=== PATIENT | female | born 1960 | race Hispanic/Latino ===

== ENCOUNTER 2020-05-22 22:38 | Observation (INO) | payer OTHER ==
[2020-05-22] MEDS ORDERED: HALOPERIDOL LACTATE 5 MG/1 ML INJ IM ONE (23:07)
[2020-05-22] MEDS ORDERED: LORazepam 2 MG/ML VIAL IM ONE (23:07)
--- NOTE | 2020-05-22 23:15 | Emergency Department Report ---
ED Altered Mental Status HPI - General Chief Complaint: Altered Mental Status Stated Complaint: AMS Time Seen by Provider: 05/22/20 22:53 Source: EMS Mode of arrival: Stretcher Limitations: Altered Mental Status - History of Present Illness Initial Comments: 58-year-old female presents with alteration mental status. Patient has a past medical history arthritis, hypertension, bipolar 1, anxiety, and a history of alcohol abuse. Patient is altered and unable to provide any history of present illness. I contacted patient's who states that patient has been having increased agitation last several days and has had several telephone visits with patient was started on estradiol [place] [facility]. Her medications have been adjusted multiple times over the last several days. As per HPI from the [place] [facility] patient reported that she did not feel good today and was anxious and very fatigued. She reports her mood was very depressed but denies thoughts of self-harm or others. She also denied having symptoms consistent with piotr or psychosis. Patient was stated on medication for menopausal symptoms and started on hormones for postmenopausal symptoms as well as Chantix to aid in smoking cessation given risk of coagulopathy while on hormone therapy. states he left the home and when he his son returned to the home found patient altered, running hands through hair. Unable to speak, agitated, appearing to have muscle spasms and diaphoretic - Related Data Allergies Allergy/AdvReac Type Severity Reaction Status Date / Time ampicillin AdvReac Itching Verified 05/22/20 23:00 ED Review of Systems ROS: Stated complaint: AMS Other details as noted in HPI ED Past Medical Hx - Past Medical History Previous Medical History?: Yes Hx Hypertension: Yes Hx Arthritis: Yes Hx Psychiatric Treatment: Yes (Generalized anxiety disorder, bipolar, MDD) Additional medical history: History of alcohol abuse, cervical spondylosis, history of attempted suicide, lumbosacral spondylosis, vitamin D deficiency, - Surgical History Past Surgical History?: Yes Additional Surgical History: Endometrial ablation - Social History Smoking Status: Current Every Day Smoker ED Physical Exam - General Limitations: Altered Mental Status ED Course Vital Signs 05/22/20 05/23/20 05/23/20 22:54 00:00 01:01 Temperature 98.6 F Pulse Rate 78 67 65 Respiratory 20 12 12 Rate Blood Pressure 138/97 132/83 112/76 O2 Sat by Pulse 96 90 97 Oximetry 05/23/20 05/23/20 05/23/20 02:01 02:35 04:40 Temperature Pulse Rate 67 97 H 69 Respiratory 10 L 15 19 Rate Blood Pressure 145/85 135/93 O2 Sat by Pulse 93 99 97 Oximetry - Reevaluation(s) Reevaluation #1: 05/23/20 02:22 I reassessed patient and found that patient was sleeping and appeared to have partial obstruction of airway with posterior tongue. O2 sat down to 91-93% but increased work of breathing. Patient's respiratory status improved with jaw thrust maneuver. Patient's head repositioned and placed on BiPAP to prevent airway obstruction while sleeping with improvement in respiratory status. ABG ordered. 05/23/20 05:59 Patient remains on BiPAP. Reassessed once again. Patient now opens eyes and moves her arms to localize touch to tactile stimuli. She is less sedated however, still appears altered and falls back to sleep when not stimulated. - Consultations Consultation #1: 05/23/20 04:[address] Barton from [place]. She states patient's BUN/creatinine in April 2013 was 21/1.2. She is agreeable to patient being admitted here - Lab Data Result diagrams: 05/22/20 23:18 05/22/20 23:18 Lab Results 05/22/20 05/22/20 05/22/20 Range/Units 23:18 23:18 23:18 WBC 10.6 (4.5-11.0) K/mm3 RBC 4.29 (3.65-5.03) M/mm3 Hgb 13.7 (10.1-14.3) gm/dl Hct 40.7 (30.3-42.9) % MCV 95 (79-97) fl MCH 32 (28-32) pg MCHC 34 (30-34) % RDW 12.8 L (13.2-15.2) % Plt Count 312 (140-440) K/mm3 Lymph % (Auto) 18.0 (13.4-35.0) % Sandoval % (Auto) 6.0 (0.0-7.3) % Eos % (Auto) 0.8 (0.0-4.3) % Baso % (Auto) 0.4 (0.0-1.8) % Lymph # 1.9 (1.2-5.4) K/mm3 Sandoval # 0.6 (0.0-0.8) K/mm3 Eos # 0.1 (0.0-0.4) K/mm3 Baso # 0.0 (0.0-0.1) K/mm3 Seg Neutrophils % 74.8 H (40.0-70.0) % Seg Neutrophils # 7.9 H (1.8-7.7) K/mm3 ABG pH (7.350-7.450) pH Units ABG pCO2 mm Hg ABG pO2 (80.0-90.0) mm Hg ABG HCO3 (20.0-26.0) mmol/L ABG O2 Saturation (95.0-99.0) % ABG O2 Content (0.0-44) ABG Base Excess (-2.0-3.0) mmol/L ABG Hemoglobin (12.0-16.0) gm/dl ABG Carboxyhemoglobin (0.0-5.0) % ABG Methemoglobin (0.0-1.5) % Oxyhemoglobin (95.0-99.0) % FiO2 % Sodium 144 (137-145) mmol/L Potassium 5.1 H (3.6-5.0) mmol/L Chloride 105.6 (98-107) mmol/L Carbon Dioxide 23 (22-30) mmol/L Anion Gap 21 mmol/L BUN 39 H (7-17) mg/dL Creatinine 1.7 H (0.6-1.2) mg/dL Estimated GFR 38 ml/min BUN/Creatinine Ratio 23 % Glucose 140 H (65-100) mg/dL Calcium 10.2 (8.4-10.2) mg/dL Magnesium (1.7-2.3) mg/dL Total Bilirubin 0.20 (0.1-1.2) mg/dL AST 25 (5-40) units/L ALT 30 (7-56) units/L Alkaline Phosphatase 114 (35-129) units/L Ammonia (25-60) umol/L Total Creatine Kinase 75 (30-135) units/L Total Protein 7.7 (6.3-8.2) g/dL Albumin 4.9 (3.9-5) g/dL Albumin/Globulin Ratio 1.8 % Urine Color (Yellow) Urine Turbidity (Clear) Urine pH (5.0-7.0) Ur Specific [place] (1.003-1.030) Urine Protein (Negative) mg/dL Urine Glucose (UA) (Negative) mg/dL Urine Ketones (Negative) mg/dL Urine Blood (Negative) Urine Nitrite (Negative) Urine Bilirubin (Negative) Urine Urobilinogen (<2.0) mg/dL Ur Leukocyte Esterase (Negative) Urine WBC (Auto) (0.0-6.0) /HPF Urine RBC (Auto) (0.0-6.0) /HPF U Epithel Cells (Auto) (0-13.0) /HPF Urine Mucus /HPF Salicylates < 0.3 L (2.8-20.0) mg/dL Urine Opiates Screen Urine Methadone Screen Acetaminophen (10.0-30.0) ug/mL Ur Barbiturates Screen Ur Phencyclidine Scrn Ur Amphetamines Screen U Benzodiazepines Scrn Urine Cocaine Screen U Marijuana (THC) Screen Drugs of Abuse Note Plasma/Serum Alcohol (0-0.07) % 05/22/20 05/22/20 05/22/20 Range/Units 23:18 23:18 23:18 WBC (4.5-11.0) K/mm3 RBC (3.65-5.03) M/mm3 Hgb (10.1-14.3) gm/dl Hct (30.3-42.9) % MCV (79-97) fl MCH (28-32) pg MCHC (30-34) % RDW (13.2-15.2) % Plt Count (140-440) K/mm3 Lymph % (Auto) (13.4-35.0) % Sandoval % (Auto) (0.0-7.3) % Eos % (Auto) (0.0-4.3) % Baso % (Auto) (0.0-1.8) % Lymph # (1.2-5.4) K/mm3 Sandoval # (0.0-0.8) K/mm3 Eos # (0.0-0.4) K/mm3 Baso # (0.0-0.1) K/mm3 Seg Neutrophils % (40.0-70.0) % Seg Neutrophils # (1.8-7.7) K/mm3 ABG pH (7.350-7.450) pH Units ABG pCO2 mm Hg ABG pO2 (80.0-90.0) mm Hg ABG HCO3 (20.0-26.0) mmol/L ABG O2 Saturation (95.0-99.0) % ABG O2 Content (0.0-44) ABG Base Excess (-2.0-3.0) mmol/L ABG Hemoglobin (12.0-16.0) gm/dl ABG Carboxyhemoglobin (0.0-5.0) % ABG Methemoglobin (0.0-1.5) % Oxyhemoglobin (95.0-99.0) % FiO2 % Sodium (137-145) mmol/L Potassium (3.6-5.0) mmol/L Chloride (98-107) mmol/L Carbon Dioxide (22-30) mmol/L Anion Gap mmol/L BUN (7-17) mg/dL Creatinine (0.6-1.2) mg/dL Estimated GFR ml/min BUN/Creatinine Ratio % Glucose (65-100) mg/dL Calcium (8.4-10.2) mg/dL Magnesium 2.60 H (1.7-2.3) mg/dL Total Bilirubin (0.1-1.2) mg/dL AST (5-40) units/L ALT (7-56) units/L Alkaline Phosphatase (35-129) units/L Ammonia (25-60) umol/L Total Creatine Kinase (30-135) units/L Total Protein (6.3-8.2) g/dL Albumin (3.9-5) g/dL Albumin/Globulin Ratio % Urine Color (Yellow) Urine Turbidity (Clear) Urine pH (5.0-7.0) Ur Specific [place] (1.003-1.030) Urine Protein (Negative) mg/dL Urine Glucose (UA) (Negative) mg/dL Urine Ketones (Negative) mg/dL Urine Blood (Negative) Urine Nitrite (Negative) Urine Bilirubin (Negative) Urine Urobilinogen (<2.0) mg/dL Ur Leukocyte Esterase (Negative) Urine WBC (Auto) (0.0-6.0) /HPF Urine RBC (Auto) (0.0-6.0) /HPF U Epithel Cells (Auto) (0-13.0) /HPF Urine Mucus /HPF Salicylates (2.8-20.0) mg/dL Urine Opiates Screen Urine Methadone Screen Acetaminophen 5.0 L (10.0-30.0) ug/mL Ur Barbiturates Screen Ur Phencyclidine Scrn Ur Amphetamines Screen U Benzodiazepines Scrn Urine Cocaine Screen U Marijuana (THC) Screen Drugs of Abuse Note Plasma/Serum Alcohol < 0.01 (0-0.07) % 05/22/20 05/22/20 05/22/20 Range/Units 23:18 Unknown Unknown WBC (4.5-11.0) K/mm3 RBC (3.65-5.03) M/mm3 Hgb (10.1-14.3) gm/dl Hct (30.3-42.9) % MCV (79-97) fl MCH (28-32) pg MCHC (30-34) % RDW (13.2-15.2) % Plt Count (140-440) K/mm3 Lymph % (Auto) (13.4-35.0) % Sandoval % (Auto) (0.0-7.3) % Eos % (Auto) (0.0-4.3) % Baso % (Auto) (0.0-1.8) % Lymph # (1.2-5.4) K/mm3 Sandoval # (0.0-0.8) K/mm3 Eos # (0.0-0.4) K/mm3 Baso # (0.0-0.1) K/mm3 Seg Neutrophils % (40.0-70.0) % Seg Neutrophils # (1.8-7.7) K/mm3 ABG pH (7.350-7.450) pH Units ABG pCO2 mm Hg ABG pO2 (80.0-90.0) mm Hg ABG HCO3 (20.0-26.0) mmol/L ABG O2 Saturation (95.0-99.0) % ABG O2 Content (0.0-44) ABG Base Excess (-2.0-3.0) mmol/L ABG Hemoglobin (12.0-16.0) gm/dl ABG Carboxyhemoglobin (0.0-5.0) % ABG Methemoglobin (0.0-1.5) % Oxyhemoglobin (95.0-99.0) % FiO2 % Sodium (137-145) mmol/L Potassium (3.6-5.0) mmol/L Chloride (98-107) mmol/L Carbon Dioxide (22-30) mmol/L Anion Gap mmol/L BUN (7-17) mg/dL Creatinine (0.6-1.2) mg/dL Estimated GFR ml/min BUN/Creatinine Ratio % Glucose (65-100) mg/dL Calcium (8.4-10.2) mg/dL Magnesium (1.7-2.3) mg/dL Total Bilirubin (0.1-1.2) mg/dL AST (5-40) units/L ALT (7-56) units/L Alkaline Phosphatase (35-129) units/L Ammonia 22.0 L (25-60) umol/L Total Creatine Kinase (30-135) units/L Total Protein (6.3-8.2) g/dL Albumin (3.9-5) g/dL Albumin/Globulin Ratio % Urine Color Rosalia (Yellow) Urine Turbidity Slightly-cloudy (Clear) Urine pH 5.0 (5.0-7.0) Ur Specific [place] 1.020 (1.003-1.030) Urine Protein 30 mg/dl (Negative) mg/dL Urine Glucose (UA) Neg (Negative) mg/dL Urine Ketones Neg (Negative) mg/dL Urine Blood Neg (Negative) Urine Nitrite Neg (Negative) Urine Bilirubin Neg (Negative) Urine Urobilinogen < 2.0 (<2.0) mg/dL Ur Leukocyte Esterase Neg (Negative) Urine WBC (Auto) 4.0 (0.0-6.0) /HPF Urine RBC (Auto) 3.0 (0.0-6.0) /HPF U Epithel Cells (Auto) < 1.0 (0-13.0) /HPF Urine Mucus 1+ /HPF Salicylates (2.8-20.0) mg/dL Urine Opiates Screen Presumptive negative Urine Methadone Screen Presumptive negative Acetaminophen (10.0-30.0) ug/mL Ur Barbiturates Screen Presumptive negative Ur Phencyclidine Scrn Presumptive negative Ur Amphetamines Screen Presumptive negative U Benzodiazepines Scrn Presumptive negative Urine Cocaine Screen Presumptive negative U Marijuana (THC) Screen Presumptive negative Drugs of Abuse Note Disclamer Plasma/Serum Alcohol (0-0.07) % 08// Range/Units 02:20 WBC (4.5-11.0) K/mm3 RBC (3.65-5.03) M/mm3 Hgb (10.1-14.3) gm/dl Hct (30.3-42.9) % MCV (79-97) fl MCH (28-32) pg MCHC (30-34) % RDW (13.2-15.2) % Plt Count (140-440) K/mm3 Lymph % (Auto) (13.4-35.0) % Sandoval % (Auto) (0.0-7.3) % Eos % (Auto) (0.0-4.3) % Baso % (Auto) (0.0-1.8) % Lymph # (1.2-5.4) K/mm3 Sandoval # (0.0-0.8) K/mm3 Eos # (0.0-0.4) K/mm3 Baso # (0.0-0.1) K/mm3 Seg Neutrophils % (40.0-70.0) % Seg Neutrophils # (1.8-7.7) K/mm3 ABG pH 7.237 L (7.350-7.450) pH Units ABG pCO2 43.5 mm Hg ABG pO2 235.7 H (80.0-90.0) mm Hg ABG HCO3 18.1 L (20.0-26.0) mmol/L ABG O2 Saturation 99.3 H (95.0-99.0) % ABG O2 Content 18.2 (0.0-44) ABG Base Excess -9.0 L (-2.0-3.0) mmol/L ABG Hemoglobin 12.9 (12.0-16.0) gm/dl ABG Carboxyhemoglobin 1.0 (0.0-5.0) % ABG Methemoglobin 0.6 (0.0-1.5) % Oxyhemoglobin 97.7 (95.0-99.0) % FiO2 100 % Sodium (137-145) mmol/L Potassium (3.6-5.0) mmol/L Chloride (98-107) mmol/L Carbon Dioxide (22-30) mmol/L Anion Gap mmol/L BUN (7-17) mg/dL Creatinine (0.6-1.2) mg/dL Estimated GFR ml/min BUN/Creatinine Ratio % Glucose (65-100) mg/dL Calcium (8.4-10.2) mg/dL Magnesium (1.7-2.3) mg/dL Total Bilirubin (0.1-1.2) mg/dL AST (5-40) units/L ALT (7-56) units/L Alkaline Phosphatase (35-129) units/L Ammonia (25-60) umol/L Total Creatine Kinase (30-135) units/L Total Protein (6.3-8.2) g/dL Albumin (3.9-5) g/dL Albumin/Globulin Ratio % Urine Color (Yellow) Urine Turbidity (Clear) Urine pH (5.0-7.0) Ur Specific [place] (1.003-1.030) Urine Protein (Negative) mg/dL Urine Glucose (UA) (Negative) mg/dL Urine Ketones (Negative) mg/dL Urine Blood (Negative) Urine Nitrite (Negative) Urine Bilirubin (Negative) Urine Urobilinogen (<2.0) mg/dL Ur Leukocyte Esterase (Negative) Urine WBC (Auto) (0.0-6.0) /HPF Urine RBC (Auto) (0.0-6.0) /HPF U Epithel Cells (Auto) (0-13.0) /HPF Urine Mucus /HPF Salicylates (2.8-20.0) mg/dL Urine Opiates Screen Urine Methadone Screen Acetaminophen (10.0-30.0) ug/mL Ur Barbiturates Screen Ur Phencyclidine Scrn Ur Amphetamines Screen U Benzodiazepines Scrn Urine Cocaine Screen U Marijuana (THC) Screen Drugs of Abuse Note Plasma/Serum Alcohol (0-0.07) % - EKG Data -: EKG Interpreted by Nh EKG shows normal: sinus rhythm, ST-T waves (no stemi) Rate: normal - Radiology Data Radiology results: report reviewed CHEST 1 VIEW INDICATION / CLINICAL INFORMATION: ams. COMPARISON: None available. FINDINGS: SUPPORT DEVICES: None. HEART / MEDIASTINUM: No significant abnormality. LUNGS / PLEURA: Suboptimal inspiration. Mild pulmonary vascular congestion. No area of focal consolidation within either lung. No significant pleural effusion. No pneumothorax. ADDITIONAL FINDINGS: No significant additional findings. IMPRESSION: 1. Suboptimal inspiration with pulmonary vascular congestion. CT head/brain wo con INDICATION / CLINICAL INFORMATION: Altered Mental Status. TECHNIQUE: Axial CT imaging of the brain was obtained without contrast. Coronal and sagittal reformatted imaging obtained and reviewed. All CT scans at this location are performed using CT dose reduction for ALARA by means of automated exposure control. COMPARISON: None available. FINDINGS: Quality of exam is somewhat degraded by patient motion. Multiple attempts were made to repeat the exam. Graph no obvious intracranial hemorrhage, mass, or midline shift is noted. No extra-axial fluid collection or suggestion of acute territorial infarction is noted. Ventricular system and basilar cisterns are grossly normal. Visualized paranasal sinuses and mastoid air cells are well aerated and clear. No visible calvarial fracture. IMPRESSION: 1. Exam quality degraded by patient motion. Gi sherry this limitation, I do not see a significant intracranial abnormality. - Medical Decision Making Patient presents to the hospital with acute delirium requiring sedation with Haldol and Ativan. Patient remained sedated throughout ED stay after medication. While sleeping patient had snoring respirations with some respiratory difficulty which improved with airway repositioning/jaw thrust. Patient repositioned in the bed and placed on BiPAP with improvement in respiratory efforts. ABG performed right after patient was placed on BiPAP shows a mild metabolic and respiratory acidosis settings were adjusted as per respiratory note. Patient also noted to have mild renal insufficiency likely secondary to dehydration and half-normal NS initiated in the ED. Other labs, UA, UDS, toxin levels, and imaging test do not have any significant abnormality to explain patient's alteration in mental status. Patient has had multiple psychiatric medications adjusted this week and I suspect adverse medication reaction. Patient remains sedated and requires medical admission to the hospital for acute delirium and further support. Critical Care Time: Yes Critical care time in (mins) excluding proc time.: 35 Critical care attestation.: If time is entered above; I have spent that time in minutes in the direct care of this critically ill patient, excluding procedure time. ED Disposition Clinical Impression: Acute delirium, Bipolar disorder, History of alcohol abuse, Adverse effects of medication, Acute renal insufficiency, Mental status alteration Disposition: -09 OP ADMIT IP TO THIS HOSP Is pt being admited?: Yes Condition: Stable Time of Disposition: 04:06
[2020-05-22 23:53] LABS: Basophils % (Auto) 0.4 % (0.0-1.8); Eosinophils # (Auto) 0.1 K/mm3 (0.0-0.4); Eosinophils % (Auto) 0.8 % (0.0-4.3); Hematocrit 40.7 % (30.3-42.9); Hemoglobin 13.7 gm/dl (10.1-14.3); Lymphocytes # (Auto) 1.9 K/mm3 (1.2-5.4); Mean Corpuscular HGB Conc 34 % (30-34); Mean Corpuscular Volume 95 fl (79-97); Monocytes # (Auto) 0.6 K/mm3 (0.0-0.8); Platelet Count 312 K/mm3 (140-440); Red Blood Count 4.29 M/mm3 (3.65-5.03); Red Cell Distribution Width 12.8 % (13.2-15.2)
[2020-05-23 00:05] LABS: Albumin 4.9 g/dL (3.9-5); Calcium 10.2 mg/dL (8.4-10.2)
[2020-05-23 00:26] LABS: Bilirubin,Urine NEG (Negative); Blood,Urine NEG (Negative); Color,Urine Amber (Yellow); Mucus,Urine 1+ /HPF; Urobilinogen,Urine < 2.0 mg/dL (<2.0)
[2020-05-23 00:30] LABS: Amphetamine Screen,Urine PRESUMPTIVE NEGATIVE; Benzodiazepines Screen,Urine PRESUMPTIVE NEGATIVE; Cannabinoid Screen,Urine PRESUMPTIVE NEGATIVE; Cocaine Screen,Urine PRESUMPTIVE NEGATIVE; Methadone Screen,Urine PRESUMPTIVE NEGATIVE; Opiate Screen,Urine PRESUMPTIVE NEGATIVE
[2020-05-23] MEDS ORDERED: SODIUM CHLORIDE 0.45% 1000 ML 1,000 ML IV SCH (01:00)
--- NOTE | 2020-05-23 01:05 | Cat Scan Report ---
CT head/brain wo con INDICATION / CLINICAL INFORMATION: Altered Mental Status. TECHNIQUE: Axial CT imaging of the brain was obtained without contrast. Coronal and sagittal reformatted imaging obtained and reviewed. All CT scans at this location are performed using CT dose reduction for ALAR A by means of automated exposure control. COMPARISON: None available. FINDINGS: Quality of exam is somewhat degraded by patient motion. Multiple attempts were made to repeat the exa m. Graph no obvious intracranial hemorrhage, mass, or midline shift is noted. No extra-axial fluid co llection or suggestion of acute territorial infarction is noted. Ventricular system and basilar ciste rns are grossly normal. Visualized paranasal sinuses and mastoid air cells are well aerated and clear. No visible calvarial f racture. IMPRESSION: 1. Exam quality degraded by patient motion. Given this limitation, I do not see a significant intracr anial abnormality. Signer Name: Shira Henson MD Signed: 05/23/2020 1:00 AM Workstation Name: [id number]
--- NOTE | 2020-05-23 01:16 | XRay Report ---
CHEST 1 VIEW INDICATION / CLINICAL INFORMATION: ams. COMPARISON: None available. FINDINGS: SUPPORT DEVICES: None. HEART / MEDIASTINUM: No significant abnormality. LUNGS / PLEURA: Suboptimal inspiration. Mild pulmonary vascular congestion. No area of focal consolid ation within either lung. No significant pleural effusion. No pneumothorax. ADDITIONAL FINDINGS: No significant additional findings. IMPRESSION: 1. Suboptimal inspiration with pulmonary vascular congestion. Signer Name: Shira Henson MD Signed: 05/23/2020 1:12 AM Workstation Name: [id number]
[2020-05-23 02:37] LABS: ABG HCO3 18.1 mmol/L (20.0-26.0); ABG Methemoglobin 0.6 % (0.0-1.5); ABG Oxygen Saturation 99.3 % (95.0-99.0); ABG PCO2 43.5 mm Hg; ABG PH 7.237 pH Units (7.350-7.450); ABG PO2 235.7 mm Hg (80.0-90.0)
[2020-05-23] MEDS ORDERED: MAGNESIUM HYDROXIDE (MOM) ORAL LIQD UDC PO PRN (05:07)
[2020-05-23] MEDS ORDERED: ONDANSETRON 4 MG/2 ML INJ IV PRN (05:07)
--- NOTE | 2020-05-23 05:20 | History and Physical Report ---
History of Present Illness Date of examination: 05/23/20 Date of admission: 05/23/20 04:34 Chief complaint: Altered mental status History of present illness: 58-year-old female with known history of hypertension, alcohol abuse, generalized anxiety disorder, bipolar disorder, presents to the emergency room today with altered mental status. indicates that patient has had increased agitation over the past few days. Her medications have also been adjusted over the past few days. Patient receives care at [facility]. [facility] physician had indicated that patient had expressed not feeling good, fatigued and anxious. She is said to be depressed but had no suicidal or homicidal ideations. indicates that patient has been running hands through her hair, appearing agitated and diaphoretic. Work-up in the emergency room so far has been unremarkable except for acute kidney injury. Past History Past Medical History: arthritis, hypertension, other (Cervical spondylosis, lumbosacral spondylosis, vitamin D deficiency, generalized anxiety disorder, bipolar disorder) Past Surgical History: Other (Endometrial ablation) Social history: smoking (Current daily smoker), alcohol abuse (History of alcohol abuse) Family history: no significant family history Medications and Allergies Allergies Allergy/AdvReac Type Severity Reaction Status Date / Time ampicillin AdvReac Itching Verified 05/22/20 23:00 Active Meds: Active Medications Acetaminophen (Tylenol) 650 mg PO Q6H PRN PRN Reason: Pain MILD(1-3)/Fever >100.5/BUSTOS Heparin Sodium (Porcine) (Heparin) 5,000 unit SUB-Q Q8HR ASHANTI Sodium Chloride (Nacl 0.45% 1000 Ml) 1,000 mls @ 150 mls/hr IV DIRECT ASHANTI Last Admin: 05/23/20 02:37 Dose: 150 mls/hr Documented by: Sodium Chloride (Nacl 0.9% 1000 Ml) 1,000 mls @ 125 mls/hr IV DIRECT ASHANTI Magnesium Hydroxide (Milk Of Magnesia) 30 ml PO Q4H PRN PRN Reason: Constipation Ondansetron HCl (Zofran) 4 mg IV Q8H PRN PRN Reason: Nausea And Vomiting Sodium Chloride (Sodium Chloride Flush Syringe 10 Ml) 10 ml IV BID ASHANTI Sodium Chloride (Sodium Chloride Flush Syringe 10 Ml) 10 ml IV PRN PRN PRN Reason: LINE FLUSH Review of Systems ROS unobtainable: due to mental status Exam - Constitutional Vitals: Temp Pulse Resp BP Pulse Ox 98.6 F 69 19 135/93 97 05/22/20 22:54 05/23/20 04:40 05/23/20 04:40 05/23/20 04:40 05/23/20 04:40 General appearance: Present: no acute distress, well-nourished - EENT Eyes: Present: PERRL, EOM intact. Absent: scleral icterus ENT: hearing intact, clear oral mucosa, dentition normal - Neck Neck: Present: supple, normal ROM - Respiratory Respiratory effort: normal Respiratory: bilateral: CTA - Cardiovascular Rhythm: regular Heart Sounds: Present: S1 & S2. Absent: gallop, systolic murmur, diastolic murmur, rub - Extremities Extremities: no ischemia, pulses intact, pulses symmetrical, No edema, Full ROM Peripheral Pulses: within normal limits - Abdominal General gastrointestinal: Present: soft, non-tender, non-distended, normal bowel sounds. Absent: mass - Integumentary Integumentary: Present: clear, warm, dry. Absent: rash - Musculoskeletal Musculoskeletal: strength equal bilaterally - Psychiatric Psychiatric: appropriate mood/affect, intact judgment & insight, cooperative - Neurologic Neurologic: CNII-XII intact, no focal deficits, moves all extremities Results - Labs CBC & Chem 7: 05/22/20 23:18 05/22/20 23:18 Labs: Abnormal lab results 05/22/20 05/22/20 05/22/20 Range/Units 23:18 23:18 23:18 RDW 12.8 L (13.2-15.2) % Seg Neutrophils % 74.8 H (40.0-70.0) % Seg Neutrophils # 7.9 H (1.8-7.7) K/mm3 ABG pH (7.350-7.450) pH Units ABG pO2 (80.0-90.0) mm Hg ABG HCO3 (20.0-26.0) mmol/L ABG O2 Saturation (95.0-99.0) % ABG Base Excess (-2.0-3.0) mmol/L Potassium 5.1 H (3.6-5.0) mmol/L BUN 39 H (7-17) mg/dL Creatinine 1.7 H (0.6-1.2) mg/dL Glucose 140 H (65-100) mg/dL Magnesium (1.7-2.3) mg/dL Ammonia (25-60) umol/L Salicylates < 0.3 L (2.8-20.0) mg/dL Acetaminophen (10.0-30.0) ug/mL 05/22/20 05/22/20 05/22/20 Range/Units 23:18 23:18 23:18 RDW (13.2-15.2) % Seg Neutrophils % (40.0-70.0) % Seg Neutrophils # (1.8-7.7) K/mm3 ABG pH (7.350-7.450) pH Units ABG pO2 (80.0-90.0) mm Hg ABG HCO3 (20.0-26.0) mmol/L ABG O2 Saturation (95.0-99.0) % ABG Base Excess (-2.0-3.0) mmol/L Potassium (3.6-5.0) mmol/L BUN (7-17) mg/dL Creatinine (0.6-1.2) mg/dL Glucose (65-100) mg/dL Magnesium 2.60 H (1.7-2.3) mg/dL Ammonia 22.0 L (25-60) umol/L Salicylates (2.8-20.0) mg/dL Acetaminophen 5.0 L (10.0-30.0) ug/mL 05/23/20 Range/Units 02:20 RDW (13.2-15.2) % Seg Neutrophils % (40.0-70.0) % Seg Neutrophils # (1.8-7.7) K/mm3 ABG pH 7.237 L (7.350-7.450) pH Units ABG pO2 235.7 H (80.0-90.0) mm Hg ABG HCO3 18.1 L (20.0-26.0) mmol/L ABG O2 Saturation 99.3 H (95.0-99.0) % ABG Base Excess -9.0 L (-2.0-3.0) mmol/L Potassium (3.6-5.0) mmol/L BUN (7-17) mg/dL Creatinine (0.6-1.2) mg/dL Glucose (65-100) mg/dL Magnesium (1.7-2.3) mg/dL Ammonia (25-60) umol/L Salicylates (2.8-20.0) mg/dL Acetaminophen (10.0-30.0) ug/mL Assessment and Plan - Patient Problems (1) Acute delirium Current Visit: Yes Status: Acute Plan to address problem: Etiology unclear. Patient has known history of bipolar disorder and has had her medications adjusted lately. Will monitor closely and place a consult to mental health for evaluation. (2) Acute renal insufficiency Current Visit: Yes Status: Acute Plan to address problem: Patient placed on IV fluid normal saline. Will monitor BUN and creatinine. (3) Bipolar disorder Current Visit: Yes Status: Acute Plan to address problem: We will await further evaluation and recommendation from mental health (4) History of alcohol abuse Current Visit: Yes Status: Acute Plan to address problem: We will monitor for alcohol withdrawal symptoms. (5) DVT prophylaxis Current Visit: Yes Status: Acute Plan to address problem: Patient placed on subcutaneous heparin. (6) Full code status Current Visit: Yes Status: Acute
[2020-05-23] MEDS ORDERED: HEPARIN 5,000 UNIT/1 ML VIAL ONE (05:40)
[2020-05-23] MEDS: HEPARIN 5,000 UNIT/1 ML VIAL SUB-Q SCH ×3 (05:43→21:00)
[2020-05-23 10:42] LABS: Calcium 9.8 mg/dL (8.4-10.2)
[2020-05-23] MEDS: amLODIPine 5 MG TAB PO SCH (10:55)
[2020-05-23] MEDS: SODIUM CHLORIDE 0.9% 1000 ML 1,000 ML IV SCH ×2 (10:55→19:42)
--- NOTE | 2020-05-23 16:15 | Event Note ---
Date: 05/23/20 58-year-old female with known history of hypertension, alcohol abuse, generalized anxiety disorder, bipolar disorder, presents to the emergency room with altered mental status, agitation. patient resting at [facility], psych consulted, will follow recommendation. cont [facility] protocol.
[2020-05-23] MEDS: HALOPERIDOL LACTATE 5 MG/1 ML INJ IM PRN (19:41)
[2020-05-24] MEDS: ACETAMINOPHEN 325 MG TAB PO PRN ×2 (01:07→09:01)
[2020-05-24] MEDS: HALOPERIDOL LACTATE 5 MG/1 ML INJ IM PRN (01:21)
[2020-05-24] MEDS: HEPARIN 5,000 UNIT/1 ML VIAL SUB-Q SCH ×2 (06:04→13:01)
[2020-05-24] MEDS: SODIUM CHLORIDE 0.9% 1000 ML 1,000 ML IV SCH (06:10)
[2020-05-24 06:26] LABS: Blood Urea Nitrogen 32 mg/dL (7-17); Calcium 8.9 mg/dL (8.4-10.2); Hemolysis Index 4
[2020-05-24 06:30] LABS: BUN/Creatinine Ratio 46
[2020-05-24 06:43] LABS: Basophils # (Auto) 0.1 K/mm3 (0.0-0.1); Basophils % (Auto) 0.8 % (0.0-1.8); Eosinophils # (Auto) 0.4 K/mm3 (0.0-0.4); Eosinophils % (Auto) 4.2 % (0.0-4.3); Hematocrit 37.3 % (30.3-42.9); Hemoglobin 12.7 gm/dl (10.1-14.3); Lymphocytes # (Auto) 2.7 K/mm3 (1.2-5.4); Lymphocytes % (Auto) 31.3 % (13.4-35.0); Mean Corpuscular HGB Conc 34 % (30-34); Mean Corpuscular Volume 94 fl (79-97); Monocytes # (Auto) 0.4 K/mm3 (0.0-0.8); Platelet Count 241 K/mm3 (140-440); Red Blood Count 3.98 M/mm3 (3.65-5.03)
[2020-05-24 06:53] LABS: INR 0.9 (0.87-1.13)
[2020-05-24] MEDS: amLODIPine 5 MG TAB PO SCH (09:00)
[2020-05-24] MEDS ORDERED: BUTALB/ACETAMINOPHEN/CAFFEINE TAB PO PRN (12:35)
[2020-05-24] MEDS ORDERED: LORazepam 2 MG/ML VIAL IV PRN (12:36)
[2020-05-24] MEDS ORDERED: chlordiazePOXIDE 25 MG CAP PO PRN (12:36)
--- NOTE | 2020-05-24 13:24 | Consultation ---
History of Present Illness - Reason for Consult Consult date: 05/24/20 Reason for consult: AMS - Chief Complaint Chief complaint: Altered mental status - History of Present Psychiatric Illness Monserrat Power is a 60y/o female patient who presented to the ER with altered mental status. During my interview with the patient today, she is sitting up in bed. She is eating. She is calm and cooperative. She is pleasant. The patient is a/o 3. She makes good eye contact. The patient was unaware why psych was consulted. She states, "was it because I got upset yesterday?" She then smiles. The patient states she has a history of "depression and anxiety." She then says, "but I already see a psychiatrist for that." She states she takes "topamax, prozac, wellbutrin and gabapentin." She says "my doctor recently changed my medication and I feel a little depressed." She says "I'm going to talk to him about it." The patient denies SI/HI, or any feelings of endangerment. She also denies suicidal attempts in the past. She says she's had "two psychiatric admissions before." The patient denies any hallucinations of any kind. She also denies any illicit drug use or alcohol recently. She states, "alcohol in the past but not now." The patient says she smokes "a pack of cigarets per week." She says she "does not need a nicotine patch." PAST PSYCHIATRIC HISTORY: Diagnoses: anxiety and depression Suicide attempts or Self-harm behavior: Denies Prior psychiatric hospitalizations: "twice" Substance Abuse history: Nicotine Previous psychiatric medications tried: topamax, prozac, wellbutrin and gabapentin. Outpatient treatment: Yes PAST MEDICAL HISTORY: None reported Family Psychiatric History: None reported or documented SOCIAL HISTORY Marital Status: Living Arrangements: Roommate Employment Status: Disabled Access to guns/weapons: Denies Education: High school graduate History of Abuse: Denies Legal History: Denies REVIEW OF SYSTEMS Constitutional: Negative for weight loss ENT: Negative for stridor Respiratory: Negative for cough or hemoptysis All other systems reviewed and are negative MENTAL STATUS EXAMINATION General Appearance: Dressed appropriately Behavior: Calm, cooperative and pleasant. Good eye contact Mood: "a little depressed" Affect and affective range: Euthymic Thought Process: Goal directed Speech: increased rate and tone Thought Content: Suicidal Ideation: Denies Homicidal Ideation: Denies Hallucinations: Denies Delusions: None elicited Insight and Judgment: Normal Memory/Cognition: Limited Attention: Normal ASSESSMENT Major Depressive Disorder RECOMMENDATIONS No scripts given Sitter: Defer to primary Medical: per primary Disposition: Do not Recommend acute inpatient psychiatric treatment once medically clear. The patient may discharge home once medically cleared. The patient currently sees a psychiatrist and states she will discuss medication adjustment with current psychiatrist. The patient understands that if suicidal thoughts or any feelings of endangerment are to arise she is to seek immediate assistance by calling the crisis hotline, 911 and/or ER. Will sign off. Thank you for this consult. Please call with any questions or concerns. Medications and Allergies Allergies Allergy/AdvReac Type Severity Reaction Status Date / Time ampicillin AdvReac Itching Verified 05/22/20 23:00 Active Meds: Active Medications Acetaminophen (Tylenol) 650 mg PO Q6H PRN PRN Reason: Pain MILD(1-3)/Fever >100.5/BUSTOS Last Admin: 05/24/20 09:01 Dose: 650 mg Documented by: Acetaminophen/Butalbital/Caffeine (Fioricet) 1 tab PO Q4H PRN PRN Reason: Headache Last Admin: 05/24/20 13:01 Dose: 1 tab Documented by: Amlodipine Besylate (Amlodipine) 5 mg PO QDAY ASHANTI Last Admin: 05/24/20 09:00 Dose: 5 mg Documented by: Chlordiazepoxide HCl (Librium) 50 mg PO Q1H PRN PRN Reason: CARLOS-Velasquez 8 Heparin Sodium (Porcine) (Heparin) 5,000 unit SUB-Q Q8HR ASHANTI Last Admin: 05/24/20 13:01 Dose: 5,000 unit Documented by: Sodium Chloride (Nacl 0.9% 1000 Ml) 1,000 mls @ 125 mls/hr IV DIRECT ASHANTI Last Admin: 05/24/20 06:10 Dose: 125 mls/hr Documented by: Lorazepam (Ativan) 1 mg IV Q1H PRN PRN Reason: CIWA-Ar 8-15 Last Admin: 05/24/20 13:01 Dose: 1 mg Documented by: Magnesium Hydroxide (Milk Of Magnesia) 30 ml PO Q4H PRN PRN Reason: Constipation Ondansetron HCl (Zofran) 4 mg IV Q8H PRN PRN Reason: Nausea And Vomiting Last Admin: 05/24/20 01:21 Dose: 4 mg Documented by: Sodium Chloride (Sodium Chloride Flush Syringe 10 Ml) 10 ml IV BID ASHANTI Last Admin: 05/24/20 09:01 Dose: 10 ml Documented by: Sodium Chloride (Sodium Chloride Flush Syringe 10 Ml) 10 ml IV PRN PRN PRN Reason: LINE FLUSH Mental Status Exam - Vital signs Last Vital Signs Temp 97.7 F 05/24/20 04:11 Pulse 80 05/24/20 09:00 Resp 18 05/24/20 04:11 BP 145/87 05/24/20 09:00 Pulse Ox 95 05/24/20 04:11 Results Result Diagrams: 05/24/20 05:47 05/24/20 05:47 Abnormal lab results 05/24/20 05/24/20 Range/Units 05:47 05:47 RDW 13.0 L (13.2-15.2) % BUN 32 H (7-17) mg/dL All other labs normal.
[2020-05-24 14:13] VITALS: BP 167/92
--- NOTE | 2020-05-24 15:50 | Discharge Summary ---
Providers - Providers Date of Admission: 05/23/20 04:34 Date of discharge: 05/24/20 Attending physician: MAUREEN DAVIES 05/23/20 04:17 Consult to Mental Health [CONS] Urgent Reason For Exam: acute delerium, bipolar disorder 05/23/20 05:08 Consult to Dietitian/Nutrition [CONS] Routine Physician Instructions: Reason For Exam: Reason for Consult: Diet education Primary care physician: GET SILVERMAN Hospitalization Condition: Stable Hospital course: 58-year-old female with known history of hypertension, alcohol abuse, general ized anxiety disorder, bipolar disorder, presents to the emergency room with altered mental status. indicated that patient has had increased agitation over the past few days. Her medications have also been adjusted over the past few days. Patient receives care at [facility]. [facility] physician had indicated that patient had expressed not feeling good, fatigued and anxious. She is said to be depressed but had no suicidal or homicidal ideations. Work-up in the emergency room so far has been unremarkable except for acute kidney injury which improved with iv fluid. Psych recommended outpt f/u. Patient was then discharged home in stable condition. Discharge diagnosis: (1) Acute delirium, resolved (2) MERE, vasomotor nephropathy, resolved (3) Bipolar disorder (4) History of alcohol abuse Disposition: DC- TO HOME OR SELFCARE Time spent for discharge: 34 minutes Core Measure Documentation - Palliative Care Palliative Care/ Comfort Measures: Not Applicable - Core Measures Any of the following diagnoses?: none Exam - Constitutional Vitals: Temp Pulse Resp BP Pulse Ox 98.1 F 81 20 167/92 97 05/24/20 12:46 05/24/20 12:46 05/24/20 12:46 05/24/20 12:46 05/24/20 12:46 General appearance: Present: no acute distress, well-nourished - EENT Eyes: Present: PERRL ENT: hearing intact, clear oral mucosa - Neck Neck: Present: supple, normal ROM - Respiratory Respiratory effort: normal Respiratory: bilateral: CTA - Cardiovascular Heart Sounds: Present: S1 & S2. Absent: rub, click - Extremities Extremities: pulses symmetrical, No edema Peripheral Pulses: within normal limits - Abdominal General gastrointestinal: Present: soft, non-tender, non-distended, normal bowel sounds - Integumentary Integumentary: Present: clear, warm, dry - Musculoskeletal Musculoskeletal: gait normal, strength equal bilaterally - Psychiatric Psychiatric: appropriate mood/affect, intact judgment & insight - Neurologic Neurologic: CNII-XII intact, moves all extremities Plan Activity: advance as tolerated Weight Bearing Status: Weight Bear as Tolerated Diet: low fat, low salt Additional Instructions: f/u with outpt psychiatry Follow up with: GET SILVERMAN MD [Primary Care Provider] - 3-5 Days Prescriptions: amLODIPine 5 mg PO QDAY #30 tablet Butalb/Acetamin/Caff 50-325-40 [Fioricet 50-325-40] 1 tab PO Q4H PRN #10 tablet PRN Reason: Headache
== END 2020-05-24 18:21 | disposition home or self-care (01) ==
LOC: EDBD 22:38 → ED 22:38 → IMCU 05-23 04:34 → 3A 05-23 22:06
PROVIDERS: ADMIT Internal Medicine Geriatric Medicine; ATTEND Internal Medicine
DX: R41.0 Disorientation, unspecified (principal); R41.82 Altered mental status, unspecified; N17.0 Acute kidney failure with tubular necrosis; F31.9 Bipolar disorder, unspecified; F10.10 Alcohol abuse, uncomplicated; I10 Essential (primary) hypertension; F41.1 Generalized anxiety disorder; M19.90 Unspecified osteoarthritis, unspecified site; F17.200 Nicotine dependence, unspecified, uncomplicated; Z79.899 Other long term (current) drug therapy; Z88.1 Allergy status to other antibiotic agents; T50.905A Adverse effect of unspecified drugs, medicaments and biological substances, initial encounter; X58.XXXA Exposure to other specified factors, initial encounter; Y93.89 Activity, other specified; Y92.89 Other specified places as the place of occurrence of the external cause
CPT/HCPCS: 36415; 70450; 71045; 80048; 80053; 80307; 81001; 82140; 82550; 82803; 82962; 83735; 83880; 85025; 85610; 93005; 96361; 96372; 96374; 96375; 99291; G0378; J1630; J1644; J2060; J2405; J7030; 80320; G0480